=== PATIENT | female | born 1995 | race Caucasian/White ===

== ENCOUNTER 2022-07-16 11:12 | Outpatient (REF) | payer MEDICARE, MEDICAID, SELFPAY ==
[2022-07-16 11:45] LABS: Binax Internal Control QC Valid; Binax Now Covid-19 Ag Negative (Negative)
[2022-07-16 13:43] LABS: MANUAL DIFF FLAG NO
[2022-07-16 13:46] LABS: Basophils Percent Auto 0.4 % (0-2); Eosinophils Absolute Auto 0.2 X10*3/uL (0.0-0.4); Eosinophils Percent Auto 2.1 % (0-4); Hematocrit 39.7 % (37.0-47.0); Hemoglobin 13.2 g/dl (12.0-16.0); Imm Gran Abs Auto 0.03 X10*3/uL (0.00-0.03); Imm Gran Pct Auto 0.3 % (0.0-0.4); Lymphocytes Percent Auto 21.5 % (20-40); Mean Corpuscular HGB Conc 33.2 g/dl (31.0-35.0); Mean Corpuscular Hemoglobin 31.1 pg (27.0-33.0); Mean Corpuscular Volume 93.6 fL (80.0-98.0); Mean Platelet Volume 10.2 fL (9.4-12.3); Monocytes Absolute Auto 0.6 X10*3/uL (0.1-1.2); Monocytes Percent Auto 6.2 % (2-11); Neutrophils Absolute Auto 6.4 x10*3/uL (2.0-8.3); Neutrophils Percent Auto 69.5 % (45-73); Platelet Count 359 X10*3/uL (160-400); Red Blood Count 4.24 X10*6/uL (4.20-5.50); Red Cell Distribution Width 13.4 % (11.0-16.0); White Blood Count 9.2 X10*3/uL (4.8-10.8)
[2022-07-16 14:00] LABS: Anion Gap 16 (12-20); Blood Urea Nitrogen 10 mg/dL (9-16); Calcium 9.3 mg/dL (8.4-10.2); Carbon Dioxide 25 mmol/L (22-29); Chloride 105 mmol/L (96-108); Estimated Glomerular Filt Rate > 60; Glucose Random 151 mg/dL (60-115); Potassium 4.5 mmol/L (3.3-5.1); Sodium 141 mmol/L (135-145)
[2022-07-16 14:02] LABS: Monotest Negative (Negative)
== END 2022-07-16 11:13 | disposition home or self-care (01) ==
LOC: HO.HMGCLDS 11:12
PROVIDERS: Visit Provider Physician Assistant
DX: Z13.89 Encounter for screening for other disorder (principal)
CPT/HCPCS: 80048; 85025; 86308; 87811

== ENCOUNTER 2022-07-16 12:29 | Outpatient (REF) | payer MEDICARE, MEDICAID, SELFPAY ==
--- NOTE | ~2022-07-16 | US_ITS ---
EXAMINATION: US VENOUS ULTRASOUND WITH DOPPLER LOWER EXTREMITY, RIGHT CLINICAL INFORMATION: Pain COMPARISON: None TECHNIQUE: Ultrasound of the deep veins is performed from the hip to the calf with compression sonography and color and pulse Doppler assessment. Spectral analysis with color-flow imaging is performed. FINDINGS: There is normal venous compression and respiratory variation and augmented flow. The visualized common femoral vein, superficial femoral vein, profunda femoral vein, popliteal vein, and the trifurcation region shows no evidence of deep venous thrombosis. There is no significant popliteal fossa cyst. Contralateral left common femoral vein is patent. US/US venous duplex LE RT IMPRESSION: No DVT demonstrated in the right lower extremity.
== END 2022-07-16 12:30 | disposition home or self-care (01) ==
LOC: HO.US 12:29
PROVIDERS: Visit Provider Physician Assistant
DX: M79.604 Pain in right leg (principal); Z20.822 Contact with and (suspected) exposure to COVID-19; R50.9 Fever, unspecified
CPT/HCPCS: 80048; 85025; 86308; 87811; 93971

== ENCOUNTER 2024-12-07 12:28 | Outpatient (AMB) | payer MEDICARE, MEDICAID, SELFPAY ==
--- OUTSIDE RECORDS SUMMARY | 2024-12-02 23:59 | XMS_ITS | Continuity of Care Document ---
[facility] Organization [facility] Address [address] [place] [address]- Support Name Relationship Address Phone EDWIN CABRAL Personal Relationship Unknown Unav ailable AVERY, JULIO Personal Relationship Unknown Unavai lable AVERY, JULIO Personal Relationship Unknown Unavai lable HENCHEY, EDWIN Personal Relationship Unknown Unav ailable HENCHEY, EDWIN Personal Relationship Unknown Unav ailable HENCHEY, EDWIN Personal Relationship Unknown Unav ailable HENCHEY, EDWIN Personal Relationship Unknown Unav ailable HENCHEY, EDWIN Personal Relationship Unknown Unav ailable AVERY, JULIO Personal Relationship Unknown Unavai lable HENCHEY, EDWIN Personal Relationship Unknown Unav ailable HENCHEY, EDWIN Personal Relationship Unknown Unav ailable AVERY, JULIO Personal Relationship Unknown Unavai lable HENCHEY, EDWIN Personal Relationship Unknown Unav ailable HENCHEY, EDWIN Personal Relationship Unknown Unav ailable HENCHEY, EDWIN Personal Relationship Unknown Unav ailable AVERY, JULIO father Unknown Unavailable AVERY, JULIO Personal Relationship Unknown Unavai lable HENCHEY, EDWIN Personal Relationship Unknown Unav ailable HENCHEY, EDWIN Personal Relationship Unknown Unav ailable AVERY, JULIO Personal Relationship Unknown Unavai lable AVERY, JULIO Personal Relationship Unknown Unavai lable HENCHEY, EDWIN Personal Relationship Unknown Unav ailable HENCHEY, EDWIN Personal Relationship Unknown Unav ailable HENCHEY, EDWIN Personal Relationship Unknown Unav ailable HENCHEY, EDWIN Personal Relationship Unknown Unav ailable AVERY, JULIO Personal Relationship Unknown Unavai lable HENCHEY, EDWIN Personal Relationship Unknown Unav ailable AVERY, JULIO Personal Relationship Unknown Unavai lable HENCHEY, EDWIN Personal Relationship Unknown Unav ailable HENCHEY, EDWIN Personal Relationship Unknown Unav ailable HENCHEY, EDWIN Personal Relationship Unknown Unav ailable HENCHEY, EDWIN Personal Relationship Unknown Unav ailable HENCHEY, EDWIN Personal Relationship Unknown Unav ailable HENCHEY, EDWIN Personal Relationship Unknown Unav ailable AVERY, JULIO Personal Relationship Unknown Unavai lable AVERY, JULIO Personal Relationship Unknown Unavai lable PAGE, CRISTIANA mother Unknown Unavailable AVERY, JULIO Personal Relationship Unknown Unavai lable HENCHEY, EDWIN Personal Relationship Unknown Unav ailable AVERY, JULIO Personal Relationship Unknown Unavai lable AVERY, JULIO father Unknown Unavailable HENCHEY, EDWIN Personal Relationship Unknown Unav ailable HENCHEY, EDWIN Personal Relationship Unknown Unav ailable HENCHEY, EDWIN Personal Relationship Unknown Unav ailable HENCHEY, EDWIN Personal Relationship Unknown Unav ailable HENCHEY, EDWIN Personal Relationship Unknown Unav ailable AVERY, JULIO Personal Relationship Unknown Unavai lable HENCHEY, EDWIN Personal Relationship Unknown Unav ailable AVERY, JULIO Personal Relationship Unknown Unavai lable HENCHEY, EDWIN Personal Relationship Unknown Unav ailable HENCHEY, EDWIN Personal Relationship Unknown Unav ailable HENCHEY, EDWIN Personal Relationship Unknown Unav ailable HENCHEY, EDWIN Personal Relationship Unknown Unav ailable AVERY, JULIO Personal Relationship Unknown Unavai lable AVERY, JULIO Personal Relationship Unknown Unavai lable HENCHEY, EDWIN Personal Relationship Unknown Unav ailable AVERY, JULIO Personal Relationship Unknown Unavai lable HENCHEY, EDWIN Personal Relationship Unknown Unav ailable HENCHEY, EDWIN Personal Relationship Unknown Unav ailable AVERY, JULIO Personal Relationship Unknown Unavai lable HENCHEY, EDWIN Personal Relationship Unknown Unav ailable AVERY, JULIO Personal Relationship Unknown Unavai lable AVERY, JULIO Personal Relationship Unknown Unavai lable HENCHEY, EDWIN Personal Relationship Unknown Unav ailable HENCHEY, EDWIN Personal Relationship Unknown Unav ailable HENCHEY, EDWIN Personal Relationship Unknown Unav ailable HENCHEY, EDWIN Personal Relationship Unknown Unav ailable HENCHEY, EDWIN Personal Relationship Unknown Unav ailable HENCHEY, EDWIN Personal Relationship Unknown Unav ailable HENCHEY, EDWIN Personal Relationship Unknown Unav ailable HENCHEY, EDWIN Personal Relationship Unknown Unav ailable AVERY, JULIO Personal Relationship Unknown Unavai lable HENCHEY, EDWIN Personal Relationship Unknown Unav ailable AVERY, JULIO Personal Relationship Unknown Unavai lable HENCHEY, EDWIN Personal Relationship Unknown Unav ailable HENCHEY, EDWIN Personal Relationship Unknown Unav ailable AVERY, JULIO Personal Relationship Unknown Unavai lable HENCHEY, EDWIN Personal Relationship Unknown Unav ailable AVERY, JULIO Personal Relationship Unknown Unavai lable HENCHEY, EDWIN Personal Relationship Unknown Unav ailable AVERY, JULIO Personal Relationship Unknown Unavai lable HENCHEY, EDWIN Personal Relationship Unknown Unav ailable HENCHEY, EDWIN Personal Relationship Unknown Unav ailable HENCHEY, EDWIN Personal Relationship Unknown Unav ailable AVERY, JULIO Personal Relationship Unknown Unavai lable HENCHEY, EDWIN Personal Relationship Unknown Unav ailable HENCHEY, EDWIN Personal Relationship Unknown Unav ailable HENCHEY, EDWIN Personal Relationship Unknown Unav ailable HENCHEY, EDWIN Personal Relationship Unknown Unav ailable HENCHEY, EDWIN Personal Relationship Unknown Unav ailable HENCHEY, EDWIN Personal Relationship Unknown Unav ailable HENCHEY, EDWIN Personal Relationship Unknown Unav ailable HENCHEY, EDWIN Personal Relationship Unknown Unav ailable AVERY, JULIO Personal Relationship Unknown Unavai lable HENCHEY, EDWIN Personal Relationship Unknown Unav ailable HENCHEY, EDWIN Personal Relationship Unknown Unav ailable HENCHEY, EDWIN Personal Relationship Unknown Unav ailable AVERY, JULIO Personal Relationship Unknown Unavai lable AVERY, JULIO Personal Relationship Unknown Unavai lable HENCHEY, EDWIN Personal Relationship Unknown Unav ailable HENCHEY, EDWIN Personal Relationship Unknown Unav ailable AVERY, JULIO Personal Relationship Unknown Unavai lable HENCHEY, EDWIN Personal Relationship Unknown Unav ailable AVERY, JULIO Personal Relationship Unknown Unavai lable HENCHEY, EDWIN Personal Relationship Unknown Unav ailable HENCHEY, EDWIN Personal Relationship Unknown Unav ailable HENCHEY, EDWIN Personal Relationship Unknown Unav ailable HENCHEY, EDWIN Personal Relationship Unknown Unav ailable HENCHEY, EDWIN Personal Relationship Unknown Unav ailable AVERY, JULIO Personal Relationship Unknown Unavai lable HENCHEY, EDWIN Personal Relationship Unknown Unav ailable Care Team Providers Care Director Clinical Applications Name Role Phone Nayely BRICE, Grace Hightower Primary Care Physician [phone] [facility] [id number] Date(s): 11/02/24 - 12/02/24 [facility] [address], [place] [address] Attending Physician: Elizabeth Pabon Admitting Physician: Elizabeth Pabon Referring Physician: Elizabeth Pabon Encounter Type: Triage Allergies, Adverse Reactions, Alerts Substance Criticality Severity Reaction Reaction Severity Status amoxicillin High criticality Moderate Hives A ctive Bactrim Hives, Rash Active Other Food Allergy 1, 2 Active 1black pepper 2mango Medications Autosoft XC 6mm 23 Autosoft XC 6mm 23 , See Instructions, # 10 each, Refills 4, Tot. Refills 4, Maintenance, use with insulin pump change every 3 days E10.9, 07/24/23 12:28:00 PM EST, Supply, 163, cm, 07/26/22 14:20:00 EST, Height Start Date: 07/24/23 Status: Ordered Quantity: 10.0 Unit: each Repeat number: 5 AUTOSOFT XC 6mm 23 RAPHAEL Miscellaneous AUTOSOFT XC 6mm 23 RAPHAEL Miscellaneous, See Instructions, # 10 Unknown, 1 Refills, Maintenance, USEWITH INSULIN PUMP. CHANGE EVERY 3 DAYS., 01/24/24 3:35:00 PM EDT, 163, cm, 07/26/22 14:20:00 EST, Height Start Date: 01/24/24 Status: Ordered Quantity: 10.0 Unit: Unknown Repeat number: 1 AutoSoft XC infusion set 6mm 32' AutoSoft XC infusion set 6mm 32', See Instructions, # 45 each, Refills 11, Tot. Refills 11, Maintenance, use as directed for diabetes control. change every 2 days, 04/06/24 3:16:00 PM EST, Supply, 163, cm, 03/18/24 13:57:00 EDT, Height Start Date: 04/06/24 Status: Ordered Quantity: 45.0 Unit: each Repeat number: 12 Basaglar KwikPen 100 units/mL subcutaneous solution See Instructions, Take 50 units every 24 hours in the event of insulin pump failure. E10.65., # 15 mL, 5 Refills, Maintenance, 09/07/21 3:37:00 PM EDT, Solution, [facility], Partial fill upon patient request if the prescription is for a schedule II opioid drug., 163, cm, 09/06/21 9:07:00 EDT, Height, 144, kg, 05/30/21 15:59:00 EST, Dry Weight Start Date: 09/07/21 Status: Ordered Quantity: 15.0 Unit: mL Repeat number: 6 DEXCOM G6 PACKAGE LINER DEXCOM G6 PACKAGE LINER, See Instructions, # 1 each, Refills 0, Tot. Refills 0, Maintenance, Use to monitor blood glucose levels before meals and at bedtime. E10.9, 08/31/20 3:48:00 PM EDT, Supply, 163, cm,08/31/20 8:51:00 EDT, Height Start Date: 08/31/20 Status: Ordered Quantity: 1.0 Unit: each Repeat number: 1 DEXCOM G6 SENSOR 3-PACK DEXCOM G6 SENSOR 3-PACK, See Instructions, # 3 each, Refills 2, Tot. Refills 2, Maintenance, Use tocontinuously monitor blood glucose levels use with insulin pump E10.9, 10/29/23 10:51:00 AM EDT, Supply, 163, cm, 07/26/22 14:20:00 EST, Height Start Date: 10/29/23 Status: Ordered Quantity: 3.0 Unit: each Repeat number: 3 DEXCOM G6 SENSOR MEDB BUNDL Miscellaneous DEXCOM G6 SENSOR MEDB BUNDL Miscellaneous, See Instructions, # 1 Unknown, 10 Refills, Maintenance, USE TO CONTINUOUSLY MONITOR BLOOD GLUCOSE LEVELS, CHANGE EVERY 10 DAYS, 01/24/24 4:15:00 PM EDT, 163,cm, 07/26/22 14:20:00 EST, Height Start Date: 01/24/24 Status: Ordered Quantity: 1.0 Unit: Unknown Repeat number: 1 DEXCOM G6 TRANSMITTER DEXCOM G6 TRANSMITTER, See Instructions, # 1 each, Refills 1, Tot. Refills 1, Maintenance, Use to monitor blood glucose levels before meals and at bedtime. E10.9, 01/23/23 11:27:00 AM EDT, Supply, 163, cm, 07/26/22 14:20:00 EST, Height, 144, kg, 05/30/21 15:59:00 EST, Dry Weight Start Date: 01/23/23 Status: Ordered Quantity: 1.0 Unit: each Repeat number: 2 duloxetine 60 mg oral enteric coated capsule 1 capsule = 60 mg, By Mouth, Daily, This is final refill from this office. Pt no longer in active treatment here., # 30 capsule, 1 Refills, Maintenance, 12/16/19 9:39:00 AM EDT, EC Capsule, [facility], 163, cm, 06/09/19 9:18:00 EST, Height, 104.5, kg, 01/28/18 14:02:00 EDT, Dry Weight Start Date: 12/16/19 Stop Date: 02/14/20 Status: Ordered Quantity: 30.0 Unit: capsule Repeat number: 2 gabapentin 600 mg oral tablet = 600 mg, By Mouth, 2 times a day, Make an appt with Neurology for follow up, # 180 tablet, 1 Refills, Maintenance, 11/25/20 11:27:00 AM EDT, Tablet, [facility], Partial fill upon patient request if the prescription is for a schedule II opioid drug., 163, cm, 08/31/20 8:51:00 EDT, Height Start Date: 11/25/20 Stop Date: 05/24/21 Status: Ordered Quantity: 180.0 Unit: tablet Repeat number: 2 Gvoke HypoPen 1 mg/0.2 mL subcutaneous solution See Instructions, INJECT 0.2 ML SUBCUTANEOUSLY ONCE, IF UNCONSCIOUS TO BE GIVEN BY FAMILY MEMBER. IF THIS MEDICATION IS USED PLEASE CALL 911 AFTER, # 0.2 mL, 10 Refills, Maintenance, 06/26/24 11:44:00AM EST, [facility], 163, cm, 03/18/24 13:57:00 EDT, Height Start Date: 06/26/24 Status: Ordered Quantity: 0.2 Unit: mL Repeat number: 1 Ketostix See Instructions, # 2 each, Refills 11, Tot. Refills 11, Maintenance, prn nasuea/vomiting or persistent hyperglycemia, 05/08/19 10:06:47 AM EST, Compound, 163, cm, 02/05/19 10:15:19 EDT, Height, 104.5, kg, 01/28/18 14:02:34 EDT, Dry Weight Start Date: 05/08/19 Status: Ordered Quantity: 2.0 Unit: each Repeat number: 12 Ketostix See Instructions, # 1 pack/packet, Refills 3, Tot. Refills 3, Maintenance, Use twice daily if glucose is over 400 or is consistently over 200., 03/18/24 3:40:00 PM EDT, Supply, 163, cm, 03/18/24 13:57:00 EDT, Height Start Date: 03/18/24 Stop Date: 03/13/25 Status: Ordered Quantity: 1.0 Unit: pack/packet Repeat number: 4 lamotrigine 100 mg oral tablet 100 mg, 1, tablet, By Mouth, Daily, take with 150mg pill for total of 250mg daily, # 30 tablet, Refills 1, Tot. Refills 1, Maintenance, 02/14/20 3:10:00 PM EDT, Route to Pharmacy Electronically, [facility], 163, cm, 06/09/19 9:18:00 EST, Height, 104.5, kg, 01/28/18 14:02:00 EDT, Dry Weight Start Date: 02/14/20 Stop Date: 04/14/20 Status: Ordered Quantity: 30.0 Unit: tablet Repeat number: 2 lamotrigine 150 mg oral tablet 1 tablet = 150 mg, By Mouth, Daily, take w/ 100mg pill for total 250mg daily.Final refill from thisoffice; no longer in active tx here., # 30 tablet, 1 Refills, Maintenance, 02/14/20 3:09:00 PM EDT, [facility], 163, cm, 06/09/19 9:18:00 EST, Height, 104.5, kg, 01/28/18 14:02:00 EDT, Dry Weight Start Date: 02/14/20 Stop Date: 04/14/20 Status: Ordered Quantity: 30.0 Unit: tablet Repeat number: 2 Latuda 80 mg oral tablet 1 tablet, By Mouth, Daily, TAKE WITH FOOD, # 30 tablet, 0 Refills, Maintenance, 02/09/20 2:28:00 PM EDT, [facility], 163, cm, 06/09/19 9:18:00 EST, Height Start Date: 02/09/20 Status: Ordered Quantity: 30.0 Unit: tablet Repeat number: 1 Liletta 52 mg intrauterine device 1 each = 52 mg, Intrauterine, Once, # 1 each, 0 Refills, Soft Stop, 05/31/21 8:37:00 AM EST, [facility], Partial fill upon patient request if the prescription is for a schedule II opioid drug., 163, cm, 05/30/21 15:59:00 EST, Height, 144, kg, 05/30/21 15:59:00 EST, Dry Weight Start Date: 05/31/21 Status: Ordered Quantity: 1.0 Unit: each Repeat number: 1 NovoLOG 100 units/mL injectable solution See Instructions, MAX DAILY DOSE 130 UNTILS PER DAY, # 50 mL, 11 Refills, Maintenance, 05/12/24 7:55:00 PM EST, [facility], 163, cm, 03/18/24 13:57:00 EDT, Height Start Date: 05/12/24 Status: Ordered Quantity: 50.0 Unit: mL Repeat number: 1 OneTouch Verio Test Strips See Instructions, # 150 each, Refills 11, Tot. Refills 11, Maintenance, Pt to check blood sugar up 5x daily as directed for dx of E10.65, 05/08/19 10:06:27 AM EST, Compound, 163, cm, 02/05/19 10:15:19 EDT, Height, 104.5, kg, 01/28/18 14:02:34 EDT, Dry Weight Start Date: 05/08/19 Status: Ordered Quantity: 150.0 Unit: each Repeat number: 12 propranolol 20 mg oral tablet 20 mg, 1, tablet, By Mouth, 3 times a day, # 90 tablet, Refills 6, Tot. Refills 6, Maintenance, 06/20/22 10:45:00 AM EST, Route to Pharmacy Electronically, [facility], Partial fill upon patient request if the prescription is for a schedule II opioid drug., 163, cm, 06/20/22 10:25:00 EST, Height, 144, kg, 05/30/21 15:59:00 EST, Dry Weight Start Date: 06/20/22 Status: Ordered Quantity: 90.0 Unit: tablet Repeat number: 7 T:SLIM X2 3ML CARTRIDGE MIS Miscellaneous T:SLIM X2 3ML CARTRIDGE MIS Miscellaneous, See Instructions, # 30 each, Refills 4, Tot. Refills 4, Maintenance, USE WITH INSULIN PUMP, CHANGE EVERY 3 DAYS 90 day supply., 08/26/24 5:05:00 PM EDT, Dx: E10.9, Supply, 163, cm, 03/18/24 13:57:00 EDT, Height Start Date: 08/26/24 Status: Ordered Quantity: 30.0 Unit: each Repeat number: 5 T:SLIM X2 3ML CARTRIDGE MIS Miscellaneous T:SLIM X2 3ML CARTRIDGE MIS Miscellaneous, See Instructions, # 10 Unknown, 0 Refills, Maintenance, USE WITH INSULIN PUMP, CHANGE EVERY 3 DAYS, 12/23/23 4:04:00 PM EDT, 163, cm, 07/26/22 14:20:00 EST, Height Start Date: 12/23/23 Status: Ordered Quantity: 10.0 Unit: Unknown Repeat number: 1 T:SLIM X2 3ML CARTRIDGE MIS Miscellaneous T:SLIM X2 3ML CARTRIDGE MIS Miscellaneous, See Instructions, # 10 Unknown, 10 Refills, Maintenance,USE WITH INSULIN PUMP, CHANGE EVERY 3 DAYS, 03/04/24 8:02:00 AM EDT, 163, cm, 07/26/22 14:20:00 EST,Height Start Date: 03/04/24 Status: Ordered Quantity: 10.0 Unit: Unknown Repeat number: 1 TANDEM T:SLIMM 3ML CARTRIDGE TANDEM T:SLIMM 3ML CARTRIDGE, See Instructions, # 10 each, Refills 11, Tot. Refills 11, Maintenance, Use with insulin pump, change every 3 days. E10.9, 11/29/22 3:23:00 PM EDT, Supply, 163, cm, 07/26/22 14:20:00 EST, Height, 144, kg, 05/30/21 15:59:00 EST, Dry Weight Start Date: 11/29/22 Status: Ordered Quantity: 10.0 Unit: each Repeat number: 12 TANDEM TRUSTEEL 32 6MM INFUSION SET TANDEM TRUSTEEL 32 6MM INFUSION SET, See Instructions, # 10 each, Refills 11, Tot. Refills 11, Maintenance, Use with insulin pump, change every 3 days. E10.9, 10/20/21 8:07:00 AM EDT, Supply, 163, cm, 09/06/21 9:07:00 EDT, Height, 144, kg, 05/30/21 15:59:00 EST, Dry Weight Start Date: 10/20/21 Status: Ordered Quantity: 10.0 Unit: each Repeat number: 12 Trulicity Pen 0.75 mg/0.5 mL subcutaneous solution = 0.75 mg, Subcutaneous Injection, Every week, rotate injection sites once weekly, # 2 mL, 2 Refills, Maintenance, 03/18/24 2:17:00 PM EDT, Solution, [facility], Partial fill upon patient request if the prescription is for a schedule II opioid drug., 163, cm, 03/18/24 13:57:00 EDT, Height Start Date: 03/18/24 Status: Ordered Quantity: 2.0 Unit: mL Repeat number: 3 Zofran 4 mg oral tablet 1 tablet = 4 mg, By Mouth, Every 8 hours, PRN Nausea & Vomiting, # 10 tablet, 2 Refills, Maintenance, 12/09/18 9:18:58 AM EDT, [facility] Start Date: 12/09/18 Status: Ordered Quantity: 10.0 Unit: tablet Repeat number: 3 Problem List Condition Confirmation Course Effective Dates Status Health St atus Informant Abscess of umbilicus Confirmed Active Change in bowel habits Confirmed Active Bipolar II disorder Confirmed Active Cellulitis of umbilicus Confirmed Active Chronic vomiting Confirmed Active Diabetes mellitus type 1 Confirmed Active Eduardo-Danlos syndrome Confirmed Active H/O nausea Confirmed Active Insomnia Confirmed Active Obesity (BMI 30-39.9) Confirmed Active Severe obesity Confirmed Active Circadian rhythm sleep disorder, free running type Confirmed Active Social Phobia Confirmed 11/03/10 Active Vitamin D deficiency Confirmed Active Social History Social History Type Response Smoking Status Never (less than 100 in lifetime) entered on: 05/30/21 Sex Sex Representation Female (finding) Patient Care team information Care Team Personnel Name: Xiomara Greco MD Position: [facility] 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 Member Role: Lifetime 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 Physician Address: [address] [place] [address], [address] [place] [address] [place] Telecom: Name: Grace Adler NP Position: [facility] PCO Associate Professional Member Role: PCP Address: [address] [place] [address] [place], [place] [address] Telecom: Care Team Related Persons Name: CRISTIANA ROSA Name: JULIO VARELA Insurance Providers Guarantor name: MARCO VARELA Health Plan Information #: 1 Payer: MEDICARE B Payer Identifier: HOOD Member Number: [id number] Group Number: [id number] Subscriber Identifier: [id number] Relationship to Subscriber: self Coverage Type: NA Coverage Verification Date: NA Telecom: NA Address: NA Health Plan Information #: 2 [facility] [employer] Payer Identifier: HOOD Member Number: [id number] Group Number: [id number] Subscriber Identifier: [id number] Relationship to Subscriber: self Coverage Type: MEDICAID Coverage Verification Date: NA Telecom: NA Address: NA
[2024-12-07 13:10] VITALS: BP 120/90; PULSE 96; TEMP 36.8; O2SAT 99; BMI 55.6
--- NOTE | 2024-12-07 13:10 | AM.OFFWIN_ITS ---
Intake Vital Signs 12/07/24 13:10 Height 5 ft 4 in Weight 324 lb BMI 55.6 BP 120/90 H Blood Pressure Location Rt brachial Position Sitting Pulse 96 Pulse Source Pulse Oximeter Temp 98.2 F Temp Source Oral Pulse Oximetry (%) 99 Oxygen Delivery Method Room Air Intake Visit Reasons: EP RT ankle injury Intake Note: Patient present right ankle pain times 1 day..fell through the deck Patient Tobacco Use Status: Never used Tobacco Oracle Business Analyst Required: No Is last menstrual period known: No Post menopausal: No Patient : No Allergies amoxicillin Allergy (Intermediate, Verified 12/07/24 13:15) Rash sulfamethoxazole (From Bactrim) Allergy (Unknown, Verified 12/07/24 13:15) Rash trimethoprim (From Bactrim) Allergy (Unknown, Verified 12/07/24 13:15) Rash Do you need a note to return to daycare/school/sports/work: No HPI HPI Comments History of Present Illness Details 29 y/o Female patient who presents to [facility] walk in clinic with c/o Right Ankle injury. 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 [facility] Medical History (Updated 12/07/24 @ 14:02 by Jennifer Graff NP) Moderate ankle sprain Social History Patient Tobacco Use Status: Never used Tobacco Patient : No Review of Systems Const All systems reviewed & are unremarkable except as noted in HPI and below Physical Exam Vital Signs: Last Vital Signs Temp 98.2 F 12/07/24 13:10 Pulse 96 12/07/24 13:10 BP 120/90 H 12/07/24 13:10 Pulse Ox 99 12/07/24 13:10 Oxygen Delivery Method Room Air 12/07/24 13:10 BMI result Body Mass Index 55.6 Const General: no acute distress Nutritional Appearance: obese Orientation/consciousness: patient oriented x3 Neuro General: patient oriented x3, gait normal and moves all extremities Extrem Right lower extremity: ankle Details: tenderness Location: of the lateral malleolus, swelling Details: diffusely and edema Details: non-pitting; no crepitus Left lower extremity: normal to inspection and full ROM Psych Speech and movement: Normal speech and movement present Assessment & Plan Assessment & Plan (1) Moderate ankle sprain: Code(s): S93.409A - Sprain of unspecified ligament of unspecified ankle, initial encounter Qualifiers: Encounter type: initial encounter Laterality: right Qualified Code(s): S93.401A - Sprain of unspecified ligament of right ankle, initial encounter Plan: NSAIDs and Acetaminophen for pain relief Wrapped Ankle with Adria bandage Ice/Hot Rest Foot. Medications: New naproxen 500 mg PO BID 30 tabs 0RF S93.409A - Sprain of unspecified ligament of unspecified ankle, initial encounter acetaminophen 1,000 mg (2 x 500 mg) PO Q6H 30 caps 0RF pain S93.409A - Sprain of unspecified ligament of unspecified ankle, initial encounter Coding Level of Care Code Est Pt Level 4 (24440) Diagnoses Moderate right ankle sprain, initial encounter S93.401A Encounter type: initial encounter Laterality: right Time Spent (min) 20
--- OUTSIDE RECORDS SUMMARY | 2024-12-07 13:23 | XMS_ITS | Clinical Summary ---
Author Organization [facility] Address [address] [place] [address] Phone Care Team Providers Care Loss Prevention Specialist Name Role Phone Rosanne Daniel MD Primary Care Provider [phone] Allergies Active Allergy Reactions Criticality Noted Date Comments Amoxicillin Food [place], black pepper Mangifera Indica 02/12/2019 Piper 02/12/2019 Sesame Oil 02/12/2019 Sesame Seed (Diagnostic) Sulfamethoxazole-Trimethoprim Medications NOVOLOG 100 UNIT/ML injection USE DIRECTED UP TO 100 UNITS PER DAY 5 8 Active insulin glargine (LANTUS) 100 UNIT/ML injection Inject under the skin. 5 Active SM ANTI-DIARRHEAL 2 MG tablet TAKE ONE TABLET BY MOUTH EVERY 4 HOURS NEEDED FOR LOOSE STOOL 11 8 Active Polyethylene Glycol 3350 (MIRALAX PO) Miralax; 05/06/2017; Active 7 Active CRYSELLE-28 0.3-30 MG-MCG per tablet TAKE ONE TABLET BY MOUTH EVERY DAY TAKE 21 DAYS OF ACTIVE TABLETS THEN SKIP PLACEBOS AND START THE NEXT PACK 3 8 Active Cholecalcifero l (VITAMIN D-3 PO) Vitamin D3; 0; 09/03/2013; Active 4 Active propranolol 20 MG tablet Take 20 mg by mouth 3 (three) times a day. Active glucose blood test strip OneTouch Ultra Blue Test Strip USE TO CHECK BLOOD SUGAR UP TO A MAX OF 7 TIMES A DAY Active amitriptyline 25 MG tablet Take 25 mg by mouth nightly. 0 9 Active EPINEPHrine 0.3 MG/0.3ML injection syringe epinephrine 0.3 mg/0.3 mL injection, auto-injector INJECT ONCE AT THE FIRST SIGN OF ALLERGIC REACTION Active gabapentin 600 MG tablet TAKE ONE TABLET BY MOUTH TWICE A DAY (DOSE INCREASE) 5 9 Active HUMALOG 100 UNIT/ML injection DIRECTED FOR TYPE 1 DM- MAX DOSE 130 UNITS/DAY VIA INSULIN PUMP 11 9 Active LORazepam 0.5 MG tablet TAKE ONE TABLET BY MOUTH EVERY DAY NEEDED FOR PANIC 0 9 Active Mefenamic Acid 250 MG capsule TAKE ONE CAPSULE BY MOUTH EVERY 6 HOURS NEEDED FOR PAIN.- FOR PAIN NOT RESPONDING TO TYLENOL,IBUPROFEN OR NAPROSYN. 1 9 Active naproxen 500 MG tablet naproxen 500 mg tablet Active LANTUS SOLOSTAR 100 UNIT/ML solution pen-injector INJECT 35 UNITS SUBCUTANEOUSLY NEEDED FOR PUMP FAILURE 11 9 Active ondansetron 4 MG tabletIndicati ons:Nausea Take 1 tablet (4 mg total) by mouth every 12 (twelve) hours as needed for nausea or vomiting. 30 tablet 11 9 Active GLUCAGON EMERGENCY 1 MG injection USE NEEDED FOR SEVERE HYPOGLYCEMIA 3 9 Active KETOSTIX strip USE DIRECTED TO CHECK KETONES WHEN FEELING NAUSEA/VOMITING/OR PERSISTANT HYPERGLYCEMIA 11 9 Active B-D UF III MINI PEN NEEDLES 31G X 5 MM misc USE ONCE DAILY WITH SYMLIN 4 9 Active ketoconazole 2 % shampoo APPLY TO DAMP SCALP, LATHER, LEAVE ON 5 MINUTES, AND RINSE. APPLY TOPICALLY TWICE A WEEK FOR 28 DAYS 3 9 Active beclomethasone (QVAR) 40 MCG/ACT inhalerIndicat ions:Cough Inhale 1 puff 2 (two) times a day. Rinse mouth with water after use, do not swallow. 1 Units 2 9 Active SYMLINPEN 60 1500 MCG/1.5ML solution pen-injector INJECT 60 MCG INTO THE SKIN 3 TIMES DAILY BEFORE MEALS 11 9 Active metFORMIN XR 500 MG 24 hr tablet Take 1,000 mg by mouth 2 (two) times a day. 5 0 Active beclomethasone (Qvar) 80 MCG/ACT inhalerIndicat ions:Cough Inhale 1 puff 2 (two) times a day. Rinse mouth with water after use, do not swallow. 1 Units 5 0 Active lamoTRIgine 100 MG tabletIndicati ons:Behavior concern TAKE ONE TABLET BY MOUTH EVERY DAY. TAKE WITH 150 MG. 30 tablet 2 0 Active lamoTRIgine 150 MG tabletIndicati ons:Behavior concern Take 1 tablet (150 mg total) by mouth once daily. 30 tablet 2 0 Active Latuda 80 MG tabletIndicati ons:Behavior concern TAKE ONE TABLET BY MOUTH EVERY DAY. TAKE WITH FOOD 30 tablet 2 0 Active DULoxetine 60 MG capsuleIndicat ions:Behavior concern Take 1 capsule (60 mg total) by mouth once daily. 30 capsule 2 0 Active traZODone 100 MG tabletIndicati ons:Behavior concern Take 1.5 tablets (150 mg total) by mouth nightly. 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) Onset: 02/22/2017 Added by: Rosanne Daniel Overweight 02/22/2017 Overview (01/16/2018): Overweight (278.02) Onset: 02/22/2017 Added by: Rosanne Daniel Type I diabetes mellitus 02/22/2017 Overview (01/16/2018): Type 1 DM (250.01) Onset: 02/22/2017 Added by: Rosanne Daniel Pain in joint, multiple sites 04/07/2015 Overview (01/16/2018): Joint pain, multiple sites (719.49) Onset: 04/07/2015 Added by: Frannie De Jesus Syncope and collapse 03/11/2015 Overview (01/16/2018): Vasovagal syncope (780.2) Onset: 03/11/2015 Added by: Jax Schmidt Mixed bipolar I disorder 08/16/2012 Overview (01/16/2018): Bipolar disorder, mixed, NOS (296.60) Onset: 08/16/2012 Added by: Rosanne Daniel Resolved Problems Problem Noted Date Diagnosed Date Resolved Date Other insomnia 01/17/2018 01/17/2018 Other depressive disorder 07/12/2011 Overview (01/16/2018): Depression (311) Onset: 07/12/2011 Added by: Rosanne Daniel Dizziness 11/02/2010 02/12/2019 Overview (01/16/2018): Dizziness (780.4) Onset: 11/02/2010 Added by: Kaleigh Paz Immunizations Immunization Administration Dates Next Due DTaP 5 05/03/1997 H1N1 Nasal 03/12/2009 HPV Vaccine 9 Valent 07/23/2017,03/19/2017,01/15 Hep A, ped/adol 02/09/2013,08/07/2012 Hep B, ped/adol 05/07/1996,1995,1995 Hib (PRP-T) 02/02/1997, 6,03/06/1996,12/30 Influenza, injectable, quadr ivalent, preservative free 02/12/2019,01/16/2018,03/19/2017,03/03,03/11/2015 Influenza, injectable, trivalent 011,03/04/2010,03/02/2009,03/11,03/13/2007,06/04/2003 Influenza, injectable, triva lent, preservative free 03/17/2013,04/05/2012 Influenza, intranasal, trivalent 04/10/2014 MMR 08/02/2000,1996 Meningococcal Conj (Menactra) MCV4P 01/11/2015,0 11/08/2006 Tdap 01/16/2016,11/08/2006 Varicella 11/11/2007,1996 Family History Medical History Relation Name Comments Eduardo-Danlos syndrome Mother Eliane Multiple sclerosis Mother Eliane Relation Name Status Comments Father Pepe Alive Half-Brother Gustavo Alive Mother Eliane Alive Social History Tobacco Use Types Packs/Day Years Used Date Smoking Tobacco: Never Smokeless Tobacco: Never Comments:Never Smoker Comments No Sex and Gender Information Value Date Recorded Sex Assigned at Not on file Legal Sex Female 6:41 PM EDT Gender Identity Female 02/12/2019 3:14 PM EDT Sexual Orientation Bisexual 02/12/2019 3: 14 PM EDT Last Filed Vital Signs Vital Sign Reading Time Taken Comments Blood Pressure 132/84 06/22/2019 10:43 AM EST Pulse 100 02/12/2019 2:39 PM EDT Temperature 35.9 C (96.6 F) 06/22/2019 10:43 AM EST Respiratory Rate - - Oxygen Saturation - - Inhaled Oxygen Concentration - - Weight 126 kg (277 lb 9.6 oz) 06/22/2019 10:43 A M EST Height 164.5 cm (5' 4.75 ) 06/22/2019 10:[address] Body Mass Index 46.55 06/22/2019 10:43 AM EST Plan of Treatment Health Maintenance Due Date Last Done Comments LDL-C/Cholesterol 09/30/2018 Glucose/HbA1C 11/13/2018 11/13/2017, 10/26, 03/04/2015, Additional history exists COVID-19 Vaccine ( - 2023- season) 2024 Influenza Vaccines (#1) 2024 02/13/20 19, 01/16/2018, 03/19/2017, Additional history exists DTaP,Tdap,and Td Vaccines (4 - Td or Tdap) 01/15/2026 01/16/2016, 11/08/2006, 05/03/1997 Hepatitis B Vaccines Completed 05/07/1996, 1995, 1995 HIB Vaccines Completed 02/02/1997, 04/26, 03/06/1996, Additional history exists MMR Vaccines Completed 08/02/2000, 1996 Varicella Vaccines Completed 11/11/2007, 1996 Hepatitis A Vaccines Completed 02/09/2013, 08/08/19 13 Meningococcal Vaccine Aged Out 01/11/2015, 007 No longer eligible based on patient's age to complete this topic HPV Vaccines Completed 07/23/2017, 02/25, 01/15/2017 IPV Vaccines Aged Out No longer eligi ble based on patient's age to complete this topic Men B Vaccine Aged Out No longer elig ible based on patient's age to complete this topic Pneumococcal Vaccine Aged Out No long er eligible based on patient's age to complete this topic Procedures * Due to [place] [employer] law, this organization might not be sharing sensitive test results. Procedure Name Priority Date/Time Associated Diagnosis Comments CHLAMYDIA AND GONORRHEA, AMPLIFIED Routine 02/12/2019 2:53 PM EDT Well adult exam BASIC METABOLIC PANEL Routine 11/13/2017 6:31 PM EDT Dizziness from Last 3 Months or Most Recently Relevant to Health Maintenance Results * Due to [place] [employer] law, this organization might not be sharing sensitive test results. * Chlamydia and Gonorrhea, Amplified (02/12/2019 2:53 PM EDT) Chlamydia Trachomatis, DNA Probe NEGATIVE (NEG) [facility] Comment: No Chlamydia Trachomatis RNA detected in this patient's sample (REFERENCE RANGE/NORMAL VALUE: NOT DETECTED) Note: This test uses health educator- mediated amplification method to detect rRNA from C. Trachomatis URINE GC AMP PROBE NEGATIVE (NEG) [facility] Comment: No Neisseria Gonorrhoeae RNA detected in this patient's sample (REFERENCE RANGE/NORMAL VALUE: NOT DETECTED) NOTE: This test uses health educator-mediated amplification method to detect rRNA from N.Gonorrhoeae. A negative result does not preclude infection. In the case of a negative urine result, testing of an endocervical(female) or urethral (male) specimen is recommended if there is high clinical suspicion of infection. Due to very high sensitivity of Nucleic Acid Amplification Test, false positive results may occur. Therefore, specimen handling is extremely important. In patients in whom the disease is unlikely, additional sample for testing should be considered after an initial positive result. The performance characteristics of this test have not been evaluated in children. The Aptima Combo2 assay is not intended for the evaluation of suspected sexual abuse or for other medico-legal indications. The ordering provider should assess if the patient had consensual sex without risk of sexual abuse. Consult the [facility] if needed. Contact phone number . Therapeutic failure or success cannot be determined with the Aptima Combo2 assay since nucleic acid may persist following appropriate antimicrobial therapy. The Centers for Disease Control and Prevention (CDC) recommends confirmatory retesting using culture or a different nucleic acid amplification test when positive results occur, if indicated. Testing performed or reported by [facility], a Service of [facility], [address] [place] [address] [facility] [place] [address] Urine 02/12/2019 2:53 PM EDT 02/13/2019 12:08 AM EDT us Rosanne Daniel MD LAB MICROBIOLOGY - GENERAL ORDER AFTAB Final Result [facility] * (ABNORMAL) Basic metabolic panel (11/13/2017 6:31 PM EDT) Glucose 173(H) (70-99) MG/DL [facility] Urea Nitrogen 8 (6-20) MG/DL [facility] Creatinine 0.8 (0.5-1.0) MG/DL [facility] Sodium 138 (133-145) MMOL/L [facility] Potassium 4.6 (3.6-5.2) MMOL/L [facility] Chloride 98 (98-107) MMOL/L [facility] HCO3, Arterial 19(L) (22-29) MMOL/L [facility] Anion Gap 21(H) (4-17) [facility] Calcium 10.1 (8.6-10.5) MG/DL [facility] eGFR Non- 105 ML/MIN/1.7 3 M2 [facility] Comment: Creatinine based estimated glomerular filtration rate (eGFR) is calculated using the Chronic Kidney Disease Epidemiology Collaboration (CKD-EPI). The CKD-EPI creatinine equation has not been validated in children (<18 years), women or in some racial or ethnic subgroups other than Caucasians and Americans. eGFR 121 ML/MIN/1.7 3 M2 [facility] Comment: Creatinine based estimated glomerular filtration rate (eGFR) is calculated using the Chronic Kidney Disease Epidemiology Collaboration (CKD-EPI). The CKD-EPI creatinine equation has not been validated in children (<18 years), women or in some racial or ethnic subgroups other than Caucasians and Americans. Testing performed or reported by [facility], a Service of [facility], [address] [place] [address] Cristiano Sotomayor MD, PhD, [employer] Blood 11/13/2017 6:31 PM EDT 11/14/2017 12:30 AM EDT Debbie Ortiz DO LAB BLOOD ORDERABLES Final Resu lt [facility] from Last 3 Months or Most Recently Relevant to Health Maintenance Insurance [facility] NON [facility] Care Teams Loss Prevention Specialist Relationship Specialty Start Date End Date Rosanne Daniel MD PCP - General 10/02/17
== END 2024-12-07 14:09 | disposition home or self-care (01) ==
PROVIDERS: PCP Registered Nurse; Visit Provider Nurse Practitioner Family
DX: S93.401A Sprain of unspecified ligament of right ankle, initial encounter (principal)

== ENCOUNTER → 2024-12-07 12:28 | Outpatient (BNVA) | payer MEDICARE, MEDICAID, SELFPAY | PROVIDERS: PCP Registered Nurse; Visit Provider Nurse Practitioner Family | DX: S93.401A Sprain of unspecified ligament of right ankle, initial encounter (principal) | CPT/HCPCS: 99212 ==

== ENCOUNTER 2024-12-15 13:18 | Outpatient (REF) | payer MEDICARE, MEDICAID, SELFPAY ==
--- NOTE | ~2024-12-15 | XR_ITS ---
EXAMINATION: XR FOOT, RIGHT CLINICAL INFORMATION: M79.671 - Pain in right foot COMPARISON: None available. TECHNIQUE: AP, lateral, and oblique views of the right foot. FINDINGS: No fracture, dislocation, or suspicious bone lesion. Normal bone mineralization. Normal alignment. Joint spaces are preserved. No significant arthropathy. Normal plantar arch. Normal mid and hindfoot. Soft tissues appear normal. XR/XR foot RT min 3V IMPRESSION: Normal right foot. Electronically signed by: Maikel Dhaliwal MD 12/15/2024 03:05 PM EDT
== END 2024-12-15 13:19 | disposition home or self-care (01) ==
LOC: HO.HMGCX 13:18
PROVIDERS: Visit Provider Physician Assistant Medical
DX: M79.671 Pain in right foot (principal); M79.89 Other specified soft tissue disorders
CPT/HCPCS: 73630; 99212

== ENCOUNTER 2024-12-15 13:18 | Outpatient (AMB) | payer MEDICARE, MEDICAID, SELFPAY ==
[2024-12-15 14:13] VITALS: BP 122/100; PULSE 100; TEMP 36.9; O2SAT 97; BMI 55.8
--- NOTE | 2024-12-15 14:13 | AM.OFFWIN_ITS ---
Intake Vital Signs 12/15/24 14:13 Height 5 ft 4 in Weight 325 lb BMI 55.8 BP 122/100 H Blood Pressure Location Rt brachial Position Sitting Pulse 100 Pulse Source Pulse Oximeter Temp 98.5 F Temp Source Oral Pulse Oximetry (%) 97 Oxygen Delivery Method Room Air Intake Visit Reasons: EP injured RT ankle Patient Tobacco Use Status: Never used Tobacco Kennel Technician Required: No Is last menstrual period known: No Post menopausal: No Patient : No Allergies amoxicillin Allergy (Intermediate, Verified 12/15/24 14:19) Rash sulfamethoxazole (From Bactrim) Allergy (Unknown, Verified 12/15/24 14:19) Rash trimethoprim (From Bactrim) Allergy (Unknown, Verified 12/15/24 14:19) Rash Do you need a note to return to daycare/school/sports/work: No HPI HPI Comments History of Present Illness Details History of Present Illness - The patient is a 29-year-old female pr esenting with right foot pain following a fall through a deck. - The incident occurred when the patient was on her deck, which broke, causing her foot to fall into a hole. - The patient reports increased pain sin ce the initial injury, particularly in the heel area, with difficulty bearing weight. - No x-ray was performed during the init ial visit. - The patient has a history of Eduardo-Da nlos syndrome, which may affect her pain perception. - She has no numbness or tingling, ankle pain, or calf pain. Physical Exam General: Cooperative, healthy appearing, comfortable, no acute distress and well developed Respiratory: Normal respiratory effort and able to speak in complete sentences. Clear to auscultation bilaterally Cardiovascular: Regular rate and rhythm. Normal S1 and S2 Skin: No rashes or lesions noted. Neuro: Sensation intact on the LE Extremities: Mild swelling noted on the right lateral foot. TTP of the right lateral 5th metatarsal and calcaneous. FROM of the ankle and the digits on the right. Pulses are 2+ on the RLE. Ambulates with steady gait. Strength is 5/5 on the LE bilaterally. Patient was informed and verbally consented to the use of an ambient scribe for clinic note documentation during this visit. [facility] Medical History (Updated 12/07/24 @ 14:02 by Jennifer Graff NP) Moderate ankle sprain Social History Patient Tobacco Use Status: Never used Tobacco Patient : No Review of Systems Const All systems reviewed & are unremarkable except as noted in HPI and below Physical Exam Vital Signs: Last Vital Signs Temp 98.5 F 12/15/24 14:13 Pulse 100 12/15/24 14:13 BP 122/100 H 12/15/24 14:13 Pulse Ox 97 12/15/24 14:13 Oxygen Delivery Method Room Air 12/15/24 14:13 BMI result Body Mass Index 55.8 Results Reviewed Results Reviewed: Reviewed the x-ray in the office today Assessment & Plan Assessment & Plan (1) Right foot pain: Code(s): M79.671 - Pain in right foot Plan Most likely contusion vs fracture vs strain Plan - Order an x-ray to assess for any fractures or structural damage to the foot. - rest, ice and elevation of the foot - tylenol or motrin as needed for pain - Consider providing a small boot for comfort and support to the affected foot. - can f/u with PCP Orders: Orders XR foot RT min 3V Today M79.671 - Pain in right foot Coding Level of Care Code Est Pt Level 4 (98861) Diagnoses Right foot pain M79.671
--- OUTSIDE RECORDS SUMMARY | 2024-12-15 14:25 | XMS_ITS | Clinical Summary ---
Author Organization [facility] Address [address] [place] [address] Phone Care Team Providers Care Bar Machine Operator Production Name Role Phone Rosanne Daniel MD Primary Care Provider [phone] Allergies Active Allergy Reactions Criticality Noted Date Comments Amoxicillin Food [place], black pepper Mangifera Indica 02/12/2019 [place] 02/12/2019 [...] complete this topic Procedures * Due to [place] [employer] law, this organization might not be sharing sensitive test results. Procedure Name Priority Date/Time Associated Diagnosis Comments CHLAMYDIA AND GONORRHEA, AMPLIFIED Routine 02/12/2019 2:53 PM EDT Well adult exam BASIC METABOLIC PANEL Routine 11/13/2017 6:31 PM EDT Dizziness from Last 3 Months or Most Recently Relevant to Health Maintenance Results * Due to [place] [employer] law, this organization might not be sharing sensitive test results. * Chlamydia and Gonorrhea, Amplified (02/12/2019 2:53 PM EDT) Chlamydia Trachomatis, DNA Probe NEGATIVE (NEG) [facility] Comment: No Chlamydia Trachomatis RNA detected in this patient's sample (REFERENCE RANGE/NORMAL VALUE: NOT DETECTED) Note: This test uses blacksmith hammer operator- mediated amplification method to detect rRNA from C. Trachomatis URINE GC AMP PROBE NEGATIVE (NEG) [facility] Comment: No Neisseria Gonorrhoeae RNA detected in this patient's sample (REFERENCE RANGE/NORMAL VALUE: NOT DETECTED) NOTE: This test uses blacksmith hammer operator-mediated amplification method to detect rRNA from N.Gonorrhoeae. [...] without risk of sexual abuse. Consult the [facility] if needed. Contact phone number . Therapeutic failure or success cannot be determined with the Aptima Combo2 assay since nucleic acid may persist following appropriate antimicrobial therapy. The Centers for Disease Control and Prevention (CDC) recommends confirmatory retesting using culture or a different nucleic acid amplification test when positive results occur, if indicated. Testing performed or reported by [facility], a Service of [facility], [address] [place] [address] [place] [address] Urine 02/12/2019 2:53 PM EDT 02/13/2019 12:08 AM EDT us Rosanne Daniel MD LAB MICROBIOLOGY - GENERAL ORDER AFTAB Final Result [facility] * (ABNORMAL) Basic metabolic panel (11/13/2017 6:31 PM EDT) Glucose 173(H) (70-99) MG/DL [facility] Urea Nitrogen 8 (6-20) MG/DL [facility] Creatinine 0.8 (0.5-1.0) MG/DL [facility] Sodium 138 (133-145) MMOL/L [facility] Potassium 4.6 (3.6-5.2) MMOL/L [facility] Chloride 98 (98-107) MMOL/L [facility] HCO3, Arterial 19(L) (22-29) MMOL/L [facility] Anion Gap 21(H) (4-17) [facility] Calcium 10.1 (8.6-10.5) MG/DL [facility] eGFR Non- 105 ML/MIN/1.7 3 M2 [facility] Comment: Creatinine based estimated glomerular filtration rate (eGFR) is calculated using the Chronic Kidney Disease Epidemiology Collaboration (CKD-EPI). The CKD-EPI creatinine equation has not been validated in children (<18 years), women or in some racial or ethnic subgroups other than Caucasians and Americans. eGFR 121 ML/MIN/1.7 3 M2 [facility] Comment: Creatinine based estimated glomerular filtration rate (eGFR) is calculated using the Chronic Kidney Disease Epidemiology Collaboration (CKD-EPI). The CKD-EPI creatinine equation has not been validated in children (<18 years), women or in some racial or ethnic subgroups other than Caucasians and Americans. Testing performed or reported by [facility], a Service of [facility], [address] [place] [address] Cristiano Sotomayor MD, PhD, [employer] Consultant Blood 11/13/2017 6:31 PM EDT 11/14/2017 12:30 AM EDT Debbie Ortiz DO LAB BLOOD ORDERABLES Final Resu lt [facility] from Last 3 Months or Most Recently Relevant to Health Maintenance Insurance [facility] NON [facility] Care Teams Bar Machine Operator Production Relationship Specialty Start Date End Date Rosanne Daniel MD PCP - General 10/02/17
== END 2024-12-15 15:24 | disposition home or self-care (01) ==
PROVIDERS: PCP Registered Nurse; Visit Provider Physician Assistant Medical
DX: M79.671 Pain in right foot (principal)

== ENCOUNTER → 2024-12-15 14:55 | Outpatient (BNV) | payer MEDICARE, MEDICAID, SELFPAY | PROVIDERS: Visit Provider Radiology Diagnostic Radiology | DX: M79.671 Pain in right foot (principal) | CPT/HCPCS: 73630 ==